=== PATIENT | female | born 1985 | race Caucasian/White ===

== ENCOUNTER 2024-08-24 21:02 | Emergency (ER) | payer MEDICAID ==
[~2024-08-24] VITALS: Ht 162.6 cm; Wt 43.9 kg
--- NOTE | 2024-08-24 23:14 | Physician Documentation ---
History of Present Illness ~ Chief Complaint: Headache Stated Complaint: HEADACHE Time Seen by MD: 22:27 OK to notify your PCP?: Yes Primary Medical Doctor: NONE Source: patient, RN/MD, RN notes reviewed, old records Mode of Arrival: Dropped Off Exam Limitations: no limitations HPI 39 year old female, with a history of headaches since she was a child as well as chronic back pain, presents complaining of generalized headache that has been constant for the last 5-7 days. Pain is severe, burning, and feels as if her head is full of fluid. She also reports photophobia. She has taken ibuprofen but without much relief, so she stopped taking it. She does admittedly smoke "a lot" of marijuana. Patient states her headaches have worsened over the last year, but she has never had imaging or workup for headaches or chronic back pain (other than x-rays from a chiropractor). She has never been prescribed medications for headaches as she does not like taking medications and does not go to the doctor unless [she] is dying." She denies any caffeine intake. She does smoke cigarettes and occasionally drinks alcohol. She denies weakness in her extremities, fever, neck stiffness, vomiting. Medication Reconciliation Allergies: Coded Allergies: No Known Allergies (Unverified , 08/24/24) Scheduled Sumatriptan Succinate (Imitrex*), 1 TAB PO UD Past Medical History Past Medical History: Headache, Chronic Pain, Chronic Back Pain Past Surgical History: no surgical history Smoking Status: Current every day smoker Alcohol Use: Rarely Drug Use: marijuana Lives In: Home Review of Systems All Other Systems at this time: Reviewed and Negative ROS As stated above in the HPI, otherwise all systems are reviewed and negative. Physical Exam Vital Signs: RN Vital Signs have been reviewed: Yes, Temperature: 97.9, Source: Axillary, Heart Rate: 114, Respiratory Rate: 16, BP: 155/108, Pulse Oximetry: 100, Weight: 43.900 Oxygen Flow Rate: 0 Pulse Oximetry Reflects: adequate oxygenation Physical Exam General: The patient is well developed, well nourished, nontoxic appearing and is in mild distress, uncomfortable appearing, holding head in her hands. Skin: [place], warm and dry with no rashes. HEENT: Head was normocephalic and atraumatic. Neck: Diffuse cervical pain. FROM. No meningismus. Chest: Clear to auscultation bilaterally without wheezes, rales or rhonchi. No accessory muscle use. No dullness to percussion. Heart: Rate regular and rhythmic. S1, S2. No murmurs. Palpation of the chest wall was normal. No rubs or thrills. Abdomen: Soft, nontender and nondistended. Positive bowel sounds. No guarding or rebound. Back: T10-L2 bilateral paraspinal muscular tenderness, scoliosis noted. Straight leg test negative bilaterally. Extremities: No cyanosis, clubbing or edema. The patient moves all extremitie s. Pulses were equal and symmetric. Neurologic: Motor and sensation grossly intact. Cranial nerves II-XII grossly intact. A & O x4. Psychologic: Normal mood and affect. No agitation. Progress Progress Note 0115: reevaluation: Pain is improved from 02/02 to 7-12/03 Results/Orders Reviewed/noted all lab results: Yes Results/Orders Orders - HUDSON CLARK MD [place] (08/24/24 23:15) Dexamethasone Inj (Decadron 10mg/Ml Inj) (08/24/24 23:15) Ct Head (08/24/24 23:19) Ct Cervical Spine (08/24/24 23:19) Ct T&L Spine (08/24/24 23:39) Completed Orders - HUDSON CLARK MD Cbc/Diff (08/24/24 23:15) Ethanol (08/24/24 23:15) MG (08/24/24 23:15) Prochlorperazine Inj (Compazine Inj) (08/24/24 23:15) Ketorolac Trometh 15mg/Ml Vial (Toradol (08/24/24 23:15) Morphine 2mg/Ml Inj. (Morphine Inj.) (08/24/24 23:15) Normal Saline 1000ml (Sodium Chloride 10 (08/24/24 23:15) BMP (08/24/24 23:15) Ct Head (08/24/24 23:19) Ct Cervical Spine (08/24/24 23:19) Normal Saline 1000ml (Sodium Chloride 10 (08/24/24 23:20) Ct T&L Spine (08/24/24 23:39) Sumatriptan Succ. Inj. (Imitrex 6mg Inj. (08/25/24 01:15) Laboratory Tests Test 08/24/24 23:23 White Blood Count 14.1 H Red Blood Count 4.76 Hemoglobin 14.1 Hematocrit 40.7 Mean Corpuscular Volume 85.5 Mean Corpuscular Hemoglobin 29.7 Mean Corpuscular Hemoglobin Concent 34.7 Red Cell Distribution Width 13.9 Platelet Count 668 H Mean Platelet Volume 7.1 L Neutrophils (%) (Auto) 80.3 H Lymphocytes (%) (Auto) 13.9 L Monocytes (%) (Auto) 4.8 Eosinophils (%) (Auto) 0.4 Basophils (%) (Auto) 0.6 Neutrophils # (Auto) 11.3 H Lymphocytes # (Auto) 2.0 Monocytes # (Auto) 0.7 Eosinophils # (Auto) 0.1 Basophils # (Auto) 0.1 CBC Comment Sodium Level 138 Potassium Level 4.2 Chloride Level 106 Carbon Dioxide Level 24.8 Anion Gap 7 L Blood Urea Nitrogen 17 Creatinine 0.69 Estimated GFR/1.73 m2 > 90 BUN/Creatinine Ratio 24.6 H Glucose Level 101 Calcium Level 8.3 L Magnesium Level 1.9 Albumin 3.8 Chemistry Comments Ethyl Alcohol Level < 10 Re-Evaluation Re-Evaluation : Re-Evaluation: Improved Progress Patient was seen and examined. Patient was given reassurance. Patient was placed on a monitor. Patient was given IV fluids and a migraine cocktail. Additionally she was having some neck pain possible tension headache CT head and C-spine were ordered but she also has some chronic pain issues and has not been address and received a CT scan of the lumbar thoracic area. She received Imitrex, Decadron, fluids, morphine Toradol and Compazine. Patient was pain improved. Her vitals also improved. Patient was then discharged home with negative studies. Continuous air sampling and monitoring interpretation shows sinus tachycardia heart rate 100s, abnormal, my interpretation. Resolved with heart rate in the 80s, no e ctopy, normal, my interpretation. Pulse oximetry monitor interpretation shows normal oxygenation at 99% room air, normal, my interpretation. EKG/XRAY/CT/US/VASC/MRI CT #1: Interpreted By: radiologist CT: T-spine With Contrast?: No Impression CLINICAL HISTORY: back pain TECHNIQUE: CT of the thoracic and lumbar spine was performed without intravenous contrast. This exam was performed according to our departmental dose optimization program. Up-to-date CT equipment and radiation dose reduction techniques are utilized as appropriate. CTDI: 9.13+ 0.27+ 0.07 DLP: 503.44 WID: COMPARISON: None FINDINGS: Thoracic spine: There are 12 rib-bearing thoracic type vertebral bodies. Mild superior endplate concavity at T5 and T6 appear chronic. Vertebral body heights are maintained otherwise. Alignment is preserved. There is no acute fracture. There is no high- grade neural foraminal or spinal stenosis. The lungs are clear. The posterior paraspinal soft tissues are unremarkable. Normal-sized heart. Lumbar spine: There are 5 fvn-vxp-wrocfct lumbar type vertebral bodies. The vertebral body heights are maintained. Alignment is preserved. No acute fracture. No high- grade neural foraminal or spinal stenosis. The posterior paraspinal soft tissues are unremarkable. Trace calcified plaque in the right common iliac artery and the abdominal aorta. No acute abnormality in the visualized abdomen. IMPRESSION: No acute fracture or traumatic malalignment in the thoracic or lumbar spine. Reviewed by Dr. Eduardo chen. CT #2: Interpreted By: radiologist CT: C-spine With Contrast?: No Impression EXAM: CT CT CERVICAL SPINE HISTORY: neck pain headache COMPARISON: None CTDIvol mGy, DLP mGy*cm. TECHNIQUE: Multiple axial CT images of the spine were obtained using bone algorithm. Axial and coronal reformatting was done. Bone and soft tissue windows were reviewed. FINDINGS / IMPRESSION: No prevertebral soft abnormality noted. Mild reversal of the normal cervical lordosis. No listhesis. The cervical vertebral bodies appear unremarkable with no evidence of fracture or dislocation. Paraspinal soft tissues appear unremarkable. Mild posterior disc-osteophyte at C5-C6 without spinal canal or neural foraminal stenosis. Reviewed by Dr. Eduardo chen. CT #3: Interpreted By: radiologist CT: head With Contrast?: No Impression Clinical History intractable headache Comparison None Technique: All CT scans at this medical facility are performed using dose modulation techniques as appropriate to a performed exam including the following: Automated exposure control was utilized; adjustment of the mA and/or kV according to patient size; and use of iterative reconstruction technique. All CT studies are reported to the Dose Index Registry of the [employer]. Without Contrast Radiation Dose: CTDI (mGy): 51.51; DLP (mGy-cm): 869.22 GUERLINE IRAHETA, [id number] Findings: No focal parenchymal lesion.No mass-effect. No shift of midline structures. The ventricular system and extracerebral CSF spaces are unremarkable for patient's age. No acute orbital abnormality. The imaged part of the paranasal sinuses is unremarkable.The imaged part of the mastoid air cells is unremarkable. The calvarium is unremarkable. The soft tissues are unremarkable. Impression: No evidence of acute intracranial abnormality. This report was electronically signed by Elizabeth Aguilar MD on 08/25/2024 1:00:21 AM. Reviewed by me, Dr. Clark. Medical Decision Making Additional info obtained from: old records Differential Dx:Considerations: Include: BENJAMIN-Cluster, BENJAMIN-Migraine, BENJAMIN-Hy pertensive, BENJAMIN-Muscular contraction, Mass lesion, Post-traumtic, Sinusitis, Temporal arteritis, Trigeminal neuralgia, Other Departure Disposition: 01 HOME / SELF CARE / HOMELESS Impression: Primary Impression: Migraine Qualified Codes: G43.911 - Migraine, unspecified, intractable, with status migrainosus Condition: Stable Discharge Instructions: Migraine Headache Additional Instructions: Take Imitrex as prescribed. Establish care with and follow up with the regular doctor if headaches persist. Return to the ER for weakness in your extremities, difficulty speaking, difficulty walking, fever, or any other new or concerning symptoms. Prescriptions Sumatriptan Succinate (Imitrex*) 100 Mg Tablet 1 TAB PO UD for headache for 30 Days, #9 TAB with fluids as early as possible after the onset of a migraine attack;may repeat after 2 hours if headache returns, not to ex Prov: HUDSON CLARK MD 08/25/24 Education Educated: Patient Educated regarding: diagnosis, need for follow up Signature Scribe Signature: Scribed for Hudson Clark MD by Nessa Hernandez . 08/24/24 23:37 Attestation: The note accurately reflects work and decisions made by me.Hudson Clark MD 08/24/24 23:13 HUDSON CLARK MD August 24, 2024 23:14 NESSA AVILES August 24, 2024 23:44
[2024-08-24] MEDS ORDERED: morphine 2 MG/ML inj. syringe IV PRN (23:15)
[2024-08-24 23:34] LABS: BASOPHILS # (AUTO) 0.1 X10'3 (0-0.2); HEMOGLOBIN 14.1 g/dl (12.0-16.0); MEAN CORPUSCULAR VOLUME 85.5 FL (78-98); RED CELL DISTRIBUTION WIDTH 13.9 % (11.5-14.5)
[2024-08-24 23:35] LABS: BASOPHILS % (AUTO) 0.6 % (0-1); EOSINOPHILS # (AUTO) 0.1 X10'3 (0-0.9); EOSINOPHILS % (AUTO) 0.4 % (0-6); HEMATOCRIT 40.7 % (35.0-45.0); LYMPHOCYTES % (AUTO) 13.9 % (21-51); MEAN CORPUSCULAR HEMOGLOBIN 29.7 PG (27.0-31.0); MEAN CORPUSCULAR HGB CONC 34.7 g/dL (33.0-36.5); MEAN PLATELET VOLUME 7.1 FL (7.4-10.4); MONOCYTES # (AUTO) 0.7 X10'3 (0-0.9); MONOCYTES % (AUTO) 4.8 % (2-12); NEUTROPHILS # (AUTO) 11.3 X10'3 (1.8-7.7); NEUTROPHILS % (AUTO) 80.3 % (42-75); PLATELET COUNT 668 X10'3 (140-440); RED BLOOD COUNT 4.76 X10'6 (4.20-5.60); WHITE BLOOD COUNT 14.1 X10'3 (4.5-11.0)
[2024-08-24 23:42] LABS: ALBUMIN 3.8 G/DL (3.4-5.0); ANION GAP 7 (8-16); BLOOD UREA NITROGEN 17 MG/DL (7-18); BUN/CREATININE RATIO 24.6 (10.0-20.0); CALCIUM 8.3 MG/DL (8.5-10.1); CHLORIDE 106 MMOL/L (99-107); CREATININE 0.69 MG/DL (0.40-0.90); ETHANOL < 10 MG/DL (<10); GLUCOSE 101 MG/DL (70-104); MAGNESIUM 1.9 MG/DL (1.5-2.4); POTASSIUM 4.2 MMOL/L (3.5-5.1); SODIUM 138 MMOL/L (135-145); TOTAL CARBON DIOXIDE 24.8 MMOL/L (24-32); eCRCL 76 ML/MIN; eGFR > 90 ML/MIN
[2024-08-25] MEDS: normal saline 1000ML IV soln IVB ONE ×2 (00:06→00:07)
[2024-08-25] MEDS: proCHLORperazine 10 MG/2 ml inj IV ONE (00:07)
[2024-08-25] MEDS: ketorolac trometh 15mg/ml vial 15 MG/ML ML IV ONE (00:07)
[2024-08-25] MEDS: dexamethasone sod phosphate 10mg/ml inj IV STA (00:07)
--- NOTE | 2024-08-25 00:16 | RADIOLOGY REPORT ---
EXAM: CT CT CERVICAL SPINE HISTORY: neck pain headache COMPARISON: None CTDIvol mGy, DLP mGy*cm. TECHNIQUE: Multiple axial CT images of the spine were obtained using bone algorithm. Axial and coron al reformatting was done. Bone and soft tissue windows were reviewed. FINDINGS / IMPRESSION: No prevertebral soft abnormality noted. Mild reversal of the normal cervical lordosis. No listhesis. The cervical vertebral bodies appear unremarkable with no evidence of fracture or dislocation. Parasp inal soft tissues appear unremarkable. Mild posterior disc-osteophyte at C5-C6 without spinal canal or neural foraminal stenosis.
--- NOTE | 2024-08-25 00:26 | RADIOLOGY REPORT ---
CLINICAL HISTORY: back pain TECHNIQUE: CT of the thoracic and lumbar spine was performed without intravenous contrast. This exam was performed according to our departmental dose optimization program. Up-to-date CT equipment and ra diation dose reduction techniques are utilized as appropriate. CTDI: 9.13+ 0.27+ 0.07 DLP: 503.44 WID: COMPARISON: None FINDINGS: Thoracic spine: There are 12 rib-bearing thoracic type vertebral bodies. Mild superior endplate concavity at T5 and T 6 appear chronic. Vertebral body heights are maintained otherwise. Alignment is preserved. There is n o acute fracture. There is no high-grade neural foraminal or spinal stenosis. The lungs are clear. T he posterior paraspinal soft tissues are unremarkable. Normal-sized heart. Lumbar spine: There are 5 apj-rlv-mzvifoc lumbar type vertebral bodies. The vertebral body heights are maintained. Alignment is preserved. No acute fracture. No high-grade neural foraminal or spinal stenosis. The posterior paraspinal soft tissues are unremarkable. Trace calcified plaque in the right common iliac artery and the abdominal aorta. No acute abnormality in the visualized abdomen. IMPRESSION: No acute fracture or traumatic malalignment in the thoracic or lumbar spine.
--- NOTE | 2024-08-25 01:04 | RADIOLOGY REPORT ---
Clinical History intractable headache Comparison None Technique: All CT scans at this medical facility are performed using dose modulation techniques as appropriate t o a performed exam including the following: Automated exposure control was utilized; adjustment of th e mA and/or kV according to patient size; and use of iterative reconstruction technique. All CT studies are reported to the Dose Index Registry of the [employer]. Without Contrast Radiation Dose: CTDI (mGy): 51.51; DLP (mGy-cm): 869.22 GUERLINE IRAHE[place], [id number] Findings: No focal parenchymal lesion.No mass-effect. No shift of midline structures. The ventricular system a nd extracerebral CSF spaces are unremarkable for patient's age. No acute orbital abnormality. The imaged part of the paranasal sinuses is unremarkable.The imaged par t of the mastoid air cells is unremarkable. The calvarium is unremarkable. The soft tissues are unremarkable. Impression: No evidence of acute intracranial abnormality. This report was electronically signed by Elizabeth Aguilar MD on 08/25/2024 1:00:21 AM.
[2024-08-25] MEDS ORDERED: SUMA100T PO (01:18)
[2024-08-25] MEDS: SUMAtriptan succ. 6 MG/0.5ml vial SQ ONE (01:25)
[2024-08-25 02:20] VITALS: BP 113/78; PULSE 82; RESP 16; TEMP 97.9; O2SAT 98
== END 2024-08-25 02:24 | disposition home or self-care (01) ==
LOC: ER 21:03
DX: G43.911 Migraine, unspecified, intractable, with status migrainosus (principal); F17.210 Nicotine dependence, cigarettes, uncomplicated; F12.90 Cannabis use, unspecified, uncomplicated; G89.29 Other chronic pain; M54.9 Dorsalgia, unspecified; Z79.899 Other long term (current) drug therapy
CPT/HCPCS: 36415; 70450; 72125; 72128; 72131; 80048; 80320; 83735; 85025; 96361; 96372; 96374; 96375; 99285; J0780; J1100; J1885; J3030; J7030